=== PATIENT | male | born 1960 | race Caucasian/White ===

== ENCOUNTER → 2019-12-09 09:20 | Outpatient (REF) | payer OTHER, SELFPAY | LOC: ANHLAB 09:20 | PROVIDERS: Visit Provider Nurse Practitioner | DX: D49.2 Neoplasm of unspecified behavior of bone, soft tissue, and skin (principal) | CPT/HCPCS: 88305; 88342 ==

== ENCOUNTER → 2020-03-15 13:55 | Outpatient (REF) | payer OTHER, SELFPAY | LOC: ANHLAB 13:55 | PROVIDERS: Visit Provider Nurse Practitioner | DX: D04.72 Carcinoma in situ of skin of left lower limb, including hip (principal) | CPT/HCPCS: 88305 ==

== ENCOUNTER → 2020-05-03 08:59 | Outpatient (REF) | payer OTHER, SELFPAY | LOC: ANHLAB 08:59 | PROVIDERS: PCP Family Medicine; Visit Provider Nurse Practitioner | DX: C44.729 Squamous cell carcinoma of skin of left lower limb, including hip (principal) | CPT/HCPCS: 88305; 88331 ==

== ENCOUNTER → 2021-03-08 08:24 | Outpatient (REF) | payer OTHER, SELFPAY | LOC: ANHLAB 08:24 | PROVIDERS: PCP Family Medicine; Visit Provider Nurse Practitioner | DX: L57.0 Actinic keratosis (principal) | CPT/HCPCS: 88305 ==

== ENCOUNTER → 2021-10-04 | Outpatient (REF) | payer OTHER, SELFPAY | END | disposition home or self-care (01) | LOC: ANHLAB 08:30 | PROVIDERS: PCP Family Medicine; Visit Provider Nurse Practitioner | DX: C44.219 Basal cell carcinoma of skin of left ear and external auricular canal (principal) | CPT/HCPCS: 88305; 88342 ==

== ENCOUNTER 2021-11-14 11:27 | Outpatient (NON) | payer OTHER, SELFPAY | END 2021-11-14 11:28 | disposition home or self-care (01) | LOC: ANHLAB 11:28 | PROVIDERS: PCP Family Medicine; Visit Provider Surgery Plastic and Reconstructive Surgery | DX: C44.219 Basal cell carcinoma of skin of left ear and external auricular canal (principal) | CPT/HCPCS: 88305; 88331 ==